=== PATIENT | male | born 1980 | race Caucasian/White ===

== ENCOUNTER 2021-09-03 12:33 | Inpatient (IN) | payer OTHER ==
[~2021-09-03] VITALS: Ht 165.1 cm; Wt 79.8 kg
[~2021-09-03 12:33] MED LIST: METH-1165 PO; PRED20TA PO
[2021-09-03] MEDS ORDERED: BUPR-69 PO ×2 (12:57→17:04)
[2021-09-03] MEDS ORDERED: TIZA2TA PO (12:57)
[2021-09-03] MEDS ORDERED: CLON0.5T2 PO (12:57)
[2021-09-03] MEDS ORDERED: ATOR1TAB19 PO (12:57)
[2021-09-03] MEDS ORDERED: LISI5TAB11 PO (12:57)
[2021-09-03 14:24] LABS: BASO # 0.1 10^3/uL (0.0-0.2); BASO % 0.7 % (0.0-1.0); EOS # 0.2 10^3/uL (0.0-0.5); EOS % 1.8 % (0.0-3.0); HEMATOCRIT 41.4 % (42.0-52.0); LYMPH # 3.9 10^3/uL (1.5-5.0); LYMPH % 31.5 % (24.0-44.0); MEAN CORPUSCULAR HEMOGLOBIN 30.7 pg (27.0-33.0); MEAN CORPUSCULAR HGB CONC 33.8 g/dl (32.0-36.5); MEAN CORPUSCULAR VOLUME 90.8 fl (80.0-96.0); MONO # 0.8 10^3/uL (0.0-0.8); MONO % 6.3 % (2.0-8.0); NEUTROPHILS # 7.4 10^3/uL (1.5-8.5); NEUTROPHILS % 59.1 % (36.0-66.0); PLATELET COUNT, AUTOMATED 314 10^3/uL (150-450); RED BLOOD COUNT 4.56 10^6/uL (4.30-6.10); WHITE BLOOD COUNT 12.5 10^3/uL (4.0-10.0)
[2021-09-03] MEDS ORDERED: MORPHINE 4 MG/ML 1ML VIAL/SYRINGE (J2270) IV ONE ×2 (14:25→16:30)
[2021-09-03] MEDS ORDERED: ONDANSETRON 4MG/2ML VIAL IV ONE (14:25)
[2021-09-03 14:33] LABS: INR 0.92; PROTHROMBIN TIME 12.8 SECONDS (12.7-14.5)
[2021-09-03] MEDS ORDERED: ISOVUE-370 76% 100ML VIAL As Ordered ONE (14:33)
[2021-09-03] MEDS ORDERED: NS 1,000 ML IV ONE (14:45)
[2021-09-03 15:05] LABS: ALBUMIN 3.8 GM/DL (3.2-5.2); BILIRUBIN,DIRECT 0.1 MG/DL (0.0-0.2); BILIRUBIN,TOTAL 0.3 MG/DL (0.2-1.0); TOTAL PROTEIN 7.6 GM/DL (6.4-8.2)
[2021-09-03] MEDS ORDERED: VITA100093 PO (17:04)
[2021-09-03] MEDS ORDERED: PREG50CA PO (17:04)
[2021-09-03] MEDS ORDERED: CLON2TAB7 PO (17:04)
[2021-09-03] MEDS ORDERED: HOME MED LIST COMPLETE! XX SCH (17:05)
[2021-09-03] MEDS ORDERED: tiZANidine 4 MG TAB PO PRN (17:20)
[2021-09-03] MEDS: NS 1,000 ML IV SCH (17:25)
[2021-09-03] MEDS ORDERED: PILL CUTTER 1 EACH XX PRN (17:35)
[2021-09-03 21:00] VITALS: BP 133/76
[2021-09-03] MEDS ORDERED: ACETAMINOPHEN TAB 650MG DOSE (2X325MG) PO PRN (21:40)
[2021-09-03] MEDS ORDERED: MORPHINE 4 MG/ML 1ML VIAL/SYRINGE (J2270) IV PRN (21:40)
[2021-09-03] MEDS: clonazePAM 1 MG TAB PO SCH (22:45)
[2021-09-03] MEDS: PREGABALIN 50 MG CAP (LYRICA) PO SCH (23:41)
[2021-09-04] MEDS: NS 1,000 ML IV SCH ×3 (02:21→21:41)
[2021-09-04 03:56] VITALS: BP 102/70
[2021-09-04] MEDS ORDERED: MORPHINE 4 MG/ML 1ML VIAL/SYRINGE (J2270) IV ONE (05:00)
[2021-09-04 06:30] LABS: HEMOGLOBIN 12.2 g/dl (13.5-17.5); MEAN CORPUSCULAR HEMOGLOBIN 30.8 pg (27.0-33.0); MEAN CORPUSCULAR HGB CONC 33.9 g/dl (32.0-36.5); MEAN CORPUSCULAR VOLUME 90.9 fl (80.0-96.0); PLATELET COUNT, AUTOMATED 268 10^3/uL (150-450); RED BLOOD COUNT 3.96 10^6/uL (4.30-6.10)
[2021-09-04 06:55] LABS: BLOOD UREA NITROGEN 16 MG/DL (7-18); CALCIUM LEVEL 9.2 MG/DL (8.5-10.1); CARBON DIOXIDE LEVEL 26 MEQ/L (21-32); CHLORIDE LEVEL 111 MEQ/L (98-107); CREATININE FOR GFR 1.02 MG/DL (0.70-1.30); GLOMERULAR FILTRATION RATE > 60.0 (>60); GLUCOSE, FASTING 73 MG/DL (70-100); POTASSIUM SERUM 4.5 MEQ/L (3.5-5.1); SODIUM LEVEL 140 MEQ/L (136-145)
[2021-09-04] MEDS: clonazePAM 0.5 MG TAB PO SCH (09:18)
[2021-09-04] MEDS: PERCOCET 5MG/325MG TAB PO PRN ×3 (09:19→21:41)
[2021-09-04] MEDS: VITAMIN D 1,000 INTERNATIONAL UNITS TABLET PO SCH (09:19)
[2021-09-04] MEDS: PREGABALIN 50 MG CAP (LYRICA) PO SCH ×2 (09:19→21:01)
[2021-09-04] MEDS: buPROPion 100 MG TAB PO SCH ×2 (09:19→11:23)
[2021-09-04] MEDS: ATORVASTATIN 10 MG TAB PO SCH (09:19)
[2021-09-04] MEDS: NORCO, ANEXSIA 5/325MG TABLET (HYDROcodone/ACETAMINOPHEN) PO PRN ×2 (11:23→18:46)
[2021-09-04 12:09] LABS: HEMATOCRIT 38.4 % (42.0-52.0); HEMOGLOBIN 12.8 g/dl (13.5-17.5); MEAN CORPUSCULAR HEMOGLOBIN 30.3 pg (27.0-33.0); MEAN CORPUSCULAR HGB CONC 33.3 g/dl (32.0-36.5); MEAN CORPUSCULAR VOLUME 90.8 fl (80.0-96.0); PLATELET COUNT, AUTOMATED 301 10^3/uL (150-450); RED BLOOD COUNT 4.23 10^6/uL (4.30-6.10); WHITE BLOOD COUNT 9.3 10^3/uL (4.0-10.0)
[2021-09-04 14:00] VITALS: BP 113/78
[2021-09-04] MEDS: clonazePAM 1 MG TAB PO SCH (21:01)
[2021-09-04 22:00] VITALS: BP 127/81
[2021-09-05] MEDS: NORCO, ANEXSIA 5/325MG TABLET (HYDROcodone/ACETAMINOPHEN) PO PRN ×2 (00:48→08:53)
[2021-09-05] MEDS: PERCOCET 5MG/325MG TAB PO PRN ×2 (05:06→12:40)
[2021-09-05 06:00] VITALS: BP 118/66
[2021-09-05 06:42] LABS: HEMATOCRIT 33.4 % (42.0-52.0); HEMOGLOBIN 11.5 g/dl (13.5-17.5); MEAN CORPUSCULAR HEMOGLOBIN 30.8 pg (27.0-33.0); MEAN CORPUSCULAR HGB CONC 34.4 g/dl (32.0-36.5); MEAN CORPUSCULAR VOLUME 89.5 fl (80.0-96.0); PLATELET COUNT, AUTOMATED 248 10^3/uL (150-450); RED BLOOD COUNT 3.73 10^6/uL (4.30-6.10); WHITE BLOOD COUNT 8.8 10^3/uL (4.0-10.0)
[2021-09-05 07:12] LABS: BLOOD UREA NITROGEN 14 MG/DL (7-18); CALCIUM LEVEL 9.4 MG/DL (8.5-10.1); CARBON DIOXIDE LEVEL 26 MEQ/L (21-32); CHLORIDE LEVEL 114 MEQ/L (98-107); CREATININE FOR GFR 0.98 MG/DL (0.70-1.30); GLOMERULAR FILTRATION RATE > 60.0 (>60); GLUCOSE, FASTING 111 MG/DL (70-100); POTASSIUM SERUM 4.2 MEQ/L (3.5-5.1); SODIUM LEVEL 142 MEQ/L (136-145)
[2021-09-05] MEDS: ATORVASTATIN 10 MG TAB PO SCH (08:46)
[2021-09-05] MEDS: buPROPion 100 MG TAB PO SCH ×2 (08:46→12:36)
[2021-09-05] MEDS: VITAMIN D 1,000 INTERNATIONAL UNITS TABLET PO SCH (08:46)
[2021-09-05] MEDS: PREGABALIN 50 MG CAP (LYRICA) PO SCH (08:46)
[2021-09-05] MEDS: clonazePAM 0.5 MG TAB PO SCH (08:46)
[2021-09-05] MEDS: NS 1,000 ML IV SCH (08:47)
[2021-09-05 09:00] VITALS: BP 118/66
[2021-09-05 12:46] LABS: HEMATOCRIT 32.8 % (42.0-52.0); HEMOGLOBIN 11.3 g/dl (13.5-17.5); MEAN CORPUSCULAR HEMOGLOBIN 31.1 pg (27.0-33.0); MEAN CORPUSCULAR HGB CONC 34.5 g/dl (32.0-36.5); MEAN CORPUSCULAR VOLUME 90.4 fl (80.0-96.0); PLATELET COUNT, AUTOMATED 264 10^3/uL (150-450); RED BLOOD COUNT 3.63 10^6/uL (4.30-6.10); WHITE BLOOD COUNT 8.5 10^3/uL (4.0-10.0)
[2021-09-05] MEDS ORDERED: PERCOCET PO (13:06)
[2021-09-05 14:41] VITALS: BP 146/99
== END 2021-09-05 17:05 | disposition home or self-care (01) | DRG 246 ==
LOC: M ED 12:33 → M ED INP 17:05 → ENRESERV 19:11 → M MS4PR 21:00
PROVIDERS: ADMIT Internal Medicine; ATTEND Internal Medicine
DX: K55.9 Vascular disorder of intestine, unspecified (principal); K62.5 Hemorrhage of anus and rectum; I10 Essential (primary) hypertension; F17.200 Nicotine dependence, unspecified, uncomplicated; Z79.899 Other long term (current) drug therapy; Z88.0 Allergy status to penicillin; Z20.822 Contact with and (suspected) exposure to COVID-19; Z90.49 Acquired absence of other specified parts of digestive tract; F32.A Depression, unspecified; F41.9 Anxiety disorder, unspecified; E78.5 Hyperlipidemia, unspecified

== ENCOUNTER → 2021-09-26 | Outpatient (REF) | payer OTHER ==
[~2021-09-26] MED LIST changes: +ATOR1TAB19 PO; +BUPR-69 PO; +CLON0.5T2 PO; +CLON2TAB7 PO; +LISI5TAB11 PO; +PERCOCET PO; +PREG50CA PO; +TIZA2TA PO; +VITA100093 PO
[2021-09-27 12:36] LABS: TOTAL 25(OH) VITAMIN D 20.2 NG/ML (30.0-100.0)
[2021-09-27 12:37] LABS: PTH INTACT 71.6 PG/ML (18.5-88.0)
== END ==
LOC: M LABDRAWC 11:08
PROVIDERS: ATTEND Nurse Practitioner Family
DX: E21.0 Primary hyperparathyroidism (principal)

== ENCOUNTER → 2021-12-16 | Outpatient (CLI) | payer OTHER ==
[~2021-12-16] MED LIST changes: +D-101000 PO; +GABA-282 PO
== END ==
LOC: M LABSMTC 09:42
PROVIDERS: ATTEND Anesthesiology
DX: Z01.812 Encounter for preprocedural laboratory examination (principal); Z20.822 Contact with and (suspected) exposure to COVID-19

== ENCOUNTER 2021-12-19 09:42 | Day surgery (SDC) | payer OTHER ==
[~2021-12-19] VITALS: Ht 165.1 cm; Wt 78.0 kg
[~2021-12-19 09:42] MED LIST changes: +NS 1,000 ML IV ONE
[2021-12-19] MEDS ORDERED: propofoL 200 MG/20 ML VIAL As Ordered ONE (10:19)
[2021-12-19] MEDS ORDERED: LIDOCAINE 2% 100MG/5ML SDV (FOR ANES.) As Ordered ONE (10:19)
[2021-12-19] MEDS ORDERED: MIDAZOLAM INJ 2MG/2ML VIAL (J2250 PER 1MG) As Ordered ONE (10:56)
[2021-12-19 11:30] VITALS: BP 142/81
== END 2021-12-19 11:45 | disposition home or self-care (01) ==
LOC: M OPP 09:42
PROVIDERS: ATTEND Surgery
DX: R19.7 Diarrhea, unspecified (principal); K62.5 Hemorrhage of anus and rectum; Z79.02 Long term (current) use of antithrombotics/antiplatelets; Z79.1 Long term (current) use of non-steroidal anti-inflammatories (NSAID); Z79.52 Long term (current) use of systemic steroids; Z79.891 Long term (current) use of opiate analgesic; Z88.0 Allergy status to penicillin; Z87.442 Personal history of urinary calculi
CPT/HCPCS: 45380; 88305; J2250

== ENCOUNTER → 2022-01-01 | Outpatient (CLI) | payer OTHER ==
[~2022-01-01] MED LIST changes: +ISOVUE-370 76% 100ML VIAL As Ordered ONE; -NS 1,000 ML IV ONE
== END ==
LOC: M RAD 12:45
PROVIDERS: ATTEND Nurse Practitioner Family
DX: R25.1 Tremor, unspecified (principal)
CPT/HCPCS: 70470; Q9967

== ENCOUNTER → 2022-01-05 | Outpatient (CLI) | payer OTHER ==
[~2022-01-05] MED LIST changes: -ISOVUE-370 76% 100ML VIAL As Ordered ONE
== END ==
LOC: M LABSMTC 11:23
PROVIDERS: ATTEND Family Medicine
DX: Z11.52 Encounter for screening for COVID-19 (principal)

== ENCOUNTER → 2022-05-12 | Outpatient (CLI) | payer OTHER ==
[2022-05-12 15:31] LABS: BASO % 0.4 % (0.0-1.0); EOS # 0.2 10^3/uL (0.0-0.5); EOS % 2.2 % (0.0-3.0); HEMATOCRIT 43.3 % (42.0-52.0); HEMOGLOBIN 14.6 g/dl (13.5-17.5); LYMPH # 2.7 10^3/uL (1.5-5.0); MEAN CORPUSCULAR HEMOGLOBIN 30.5 pg (27.0-33.0); MEAN CORPUSCULAR HGB CONC 33.7 g/dl (32.0-36.5); MEAN CORPUSCULAR VOLUME 90.6 fl (80.0-96.0); MONO # 0.7 10^3/uL (0.0-0.8); MONO % 7.2 % (2.0-8.0); NEUTROPHILS # 6.4 10^3/uL (1.5-8.5); NEUTROPHILS % 62.7 % (36.0-66.0); PLATELET COUNT, AUTOMATED 262 10^3/uL (150-450); RED BLOOD COUNT 4.78 10^6/uL (4.30-6.10); WHITE BLOOD COUNT 10.2 10^3/uL (4.0-10.0)
[2022-05-12 16:29] LABS: ALBUMIN 4.1 GM/DL (3.2-5.2); ALT/SGPT 31 U/L (12-78); BILIRUBIN,TOTAL 0.4 MG/DL (0.2-1.0); BLOOD UREA NITROGEN 12 MG/DL (7-18); CALCIUM LEVEL 9.3 MG/DL (8.5-10.1); CARBON DIOXIDE LEVEL 25 MEQ/L (21-32); CHLORIDE LEVEL 107 MEQ/L (98-107); CREATININE FOR GFR 0.96 MG/DL (0.70-1.30); GLOMERULAR FILTRATION RATE > 60.0 (>60); GLUCOSE, FASTING 89 MG/DL (70-100); SODIUM LEVEL 137 MEQ/L (136-145); TOTAL PROTEIN 7.4 GM/DL (6.4-8.2)
== END ==
LOC: M LAB 14:53
PROVIDERS: ATTEND Orthopaedic Surgery
DX: M54.2 Cervicalgia (principal)

== ENCOUNTER → 2022-05-12 | Outpatient (CLI) | payer OTHER | LOC: M SOG 14:02 | PROVIDERS: ATTEND Orthopaedic Surgery | DX: M47.812 Spondylosis without myelopathy or radiculopathy, cervical region (principal); M25.78 Osteophyte, vertebrae ==